=== PATIENT | female | born 1970 | race Caucasian/White ===

== ENCOUNTER 2016-10-16 13:40 | Emergency (ER) | payer OTHER ==
[2016-10-16 13:38] LABS: INFLUENZA A NEG (NEG); INFLUENZA B NEG (NEG)
[~2016-10-16 13:40] MED LIST: CIPRO PO; ENABLEX15 MG PO; FLOMAX0.4 M1 PO; IBUPROFEN800 MG PO; MOBIC PO; NO MEDICATIONS; TOPAMAX25 MG PO; VICODIN 5/500 T1 TAB PO
[2016-10-16 13:57] LABS: URINE APPEARANCE SL CLOUDY; URINE BILIRUBIN NEG (NEG); URINE BLOOD TRACE-INTACT (NEG); URINE COLOR YELLOW; URINE GLUCOSE NEG (NORM); URINE KETONE NEG (NEG); URINE LEUKOCYTE ESTERASE 2+ (NEG); URINE NITRATE NEG (NEG); URINE PROTEIN NEG (NEG); URINE SOURCE CLEAN CATCH; URINE SPECIFIC GRAVITY 1.025 (1.003-1.035)
[2016-10-16 13:58] LABS: MICRO INDICATED? YES
[2016-10-16 14:06] LABS: CULTURE INDICATED? YES; URINE BACTERIA 1+ (NEG); URINE RBC 0-2 /[HPF] (0-2); URINE SQUAMOUS EPITHELIAL CELL MANY /[HPF]
== END 2016-10-16 14:42 | disposition home or self-care (01) ==
LOC: SED 13:40
PROVIDERS: Nurse Practitioner
DX: R50.9 Fever, unspecified (principal); R05 Cough; N39.0 Urinary tract infection, site not specified; F17.210 Nicotine dependence, cigarettes, uncomplicated; Z90.710 Acquired absence of both cervix and uterus
CPT/HCPCS: 81003; 87086; 87186; 87651; 87804; 99283

== ENCOUNTER → 2016-11-02 | Outpatient (CLI) | payer OTHER ==
--- NOTE | ~2016-11-02 | CR7 ---
[facility] A Service of [facility] & [facility] RADIOLOGY TEXT RESULTS PATIENT: ROXIE ROMAN LOCATION: [facility] : 74 UNIT #: [id number] AGE: [address]: Gerhard Lemon MD SEX: F ORDER DR: [id number] [facility] [address] [place], [place] [address] [id number] O MR#: [id number] Acc #: [id number] NAME: ROXIE ROMAN : 1970 SEX: F STUDY DATE/TIME: 11/02/2016 12:05 UNIT: [facility] ROOM: STUDY DESCRIPTION: CR Abdomen Single AP View Attending Physician: Gerhard Lemon M.D. Referring Physician: Gerhard Lemon M.D. Ordering Physician: Gerhard Lemon M.D. Primary Care Physician: [facility] MEDICAL IMAGING REPORT This report is preliminary unless electronic signature is present EXAM AP abdomen, 11/02/2016 INDICATION 46-year-old female with history of kidney stones. Bilateral kidney stones, lithotripsy in July. Recurring pain for 1-2 years. COMPARISON 04/07/2016 FINDINGS No radiopaque stones on the left. There is a 6 mm rounded calcification in the region of the right kidney suspected to be a small right kidney stone. IMPRESSION No radiopaque kidney stones on the left. A 6 mm rounded calcification projecting over the right kidney suspected to be a right kidney stone. Dictated by... Dev Hartman M.D. THIS IS AN ELECTRONICALLY VERIFIED REPORT Dev Hartman M.D. at 11/03/2016 10:02 AM GABI/hudson TD: 11/03/2016 03:14 JOB #: [id number] MEDICAL IMAGING REPORT Page 1 of 1 COPY
== END | disposition home or self-care (01) ==
LOC: CRAD 11:34
DX: N20.0 Calculus of kidney (principal); N28.89 Other specified disorders of kidney and ureter
CPT/HCPCS: 74000

== ENCOUNTER → 2016-12-22 | Outpatient (CLI) | payer OTHER ==
--- NOTE | ~2016-12-22 | CR7 ---
[facility] A Service of [facility] & [facility] RADIOLOGY TEXT RESULTS PATIENT: ROXIE ROMAN LOCATION: [facility] : 74 UNIT #: [id number] AGE: [address]: Gerhard Lemon MD SEX: F ORDER DR: [id number] [facility] [address] [place], [place] [address] [id number] O MR#: [id number] Acc #: [id number] NAME: ROXIE ROMAN : 1970 SEX: F STUDY DATE/TIME: 12/22/2016 10:07 UNIT: [facility] ROOM: STUDY DESCRIPTION: CR Abdomen Single AP View Attending Physician: Gerhard Lemon M.D. Referring Physician: Gerhard Lemon M.D. Ordering Physician: Gerhard Lemon M.D. [facility] MED[facility] IMAGING REPORT This report is preliminary unless electronic signature is present EXAM KUB, 12/22/2016. HISTORY 46-year-old female referred for followup of kidney stones. TECHNIQUE AP supine radiographs of the abdomen and pelvis. FINDINGS There is a 7 mm calculus superimposed over the right mid kidney that appears slightly larger than on the previous study of 11/02/2016. No other renal or urinary tract calculi. Bowel gas pattern is normal. IMPRESSION 7 mm calculus right mid kidney. Dictated by... Alan Aragon M.D. THIS IS AN ELECTRONICALLY VERIFIED REPORT Alan Aragon M.D. at 12/22/2016 6:48 PM KAMRONW/noel TD: 12/22/2016 12:37 JOB #: [id number] MEDICAL IMAGING REPORT Page 1 of 1 COPY
== END | disposition home or self-care (01) ==
LOC: CRAD 09:50
DX: N20.0 Calculus of kidney (principal)
CPT/HCPCS: 74000

== ENCOUNTER → 2017-02-08 | Outpatient (CLI) | payer OTHER ==
--- NOTE | ~2017-02-08 | CR7 ---
[facility] A Service of [facility] & [facility] RADIOLOGY TEXT RESULTS PATIENT: ROXIE ROMAN LOCATION: [facility] : 74 UNIT #: [id number] AGE: [address]: Gerhard Lemon MD SEX: F ORDER DR: [id number] [facility] [address] [place], [place] [address] [id number] O MR#: [id number] Acc #: [id number] NAME: ROXIE ROMAN : 1970 SEX: F STUDY DATE/TIME: 02/08/2017 10:10 UNIT: [facility] ROOM: STUDY DESCRIPTION: CR Abdomen Single AP View Attending Physician: Gerhard Lemon M.D. Referring Physician: Gerhard Lemon M.D. Ordering Physician: Gerhard Lemon M.D. Primary Care Physician: [facility] MEDICAL IMAGING REPORT This report is preliminary unless electronic signature is present EXAM Abdomen, 02/08/2017 COMPARISON 01/01/2017 HISTORY Follow-up kidney stones FINDINGS A supine view of the abdomen was obtained. There is an oval calcification superimposed upon the lower right kidney measuring 7.0 mm in diameter. It is unchanged from the prior study. No other calcifications are identified. The bowel gas pattern is normal and the bones are normal. IMPRESSION There is a 7.0 mm calcification superimposed upon the lower pole of the right kidney suggesting a stone and it unchanged from the prior study. Otherwise the study is negative. Dictated by... Jarrell Og M.D. THIS IS AN ELECTRONICALLY VERIFIED REPORT Jarrell Og M.D. at 02/10/2017 12:40 PM LISA/sj TD: 02/10/2017 12:13 JOB #: [id number] MEDICAL IMAGING REPORT Page 1 of 1 COPY
== END | disposition home or self-care (01) ==
LOC: CRAD 09:30
DX: N20.0 Calculus of kidney (principal); N28.89 Other specified disorders of kidney and ureter
CPT/HCPCS: 74000